=== PATIENT | male | born 1955 | race Asian ===

== ENCOUNTER 2018-10-24 14:23 | Emergency (ER) | payer MEDICAID ==
[~2018-10-24] VITALS: Ht 182.9 cm; Wt 99.8 kg
[~2018-10-24 14:23] MED LIST: SANTYL OINTMENT TP
[2018-10-24 14:45] VITALS: BP 164/93
--- NOTE | 2018-10-24 14:45 | NUR ---
ED Nurse Note: Pt from [facility] brought in by ambulance due to right leg weeping edema x 2 days. Noted right lower leg redness, swelling and open skin lesions but no drainage at this time. Also noted wounds on right knee, right foot and left thigh. Patient is AAO x4, non ambulatory follows commands, with oxygen and NC at 2Lpm d/t condition SOB at the facility.
--- NOTE | 2018-10-24 14:48 | Emergency Room Report ---
History of Present Illness General Chief Complaint: Skin Rash/Abscess Source: Patient, Medical Record, EMS Present Illness HPI This is a 63-year-old male with a poor historian who was sent by a postacute care center for bleeding in the right leg. He appears that he has a long- standing history of fluid overload and peripheral edema. He denies any pain. Denies any fever. The bleeding was controlled with direct pressure and rapid wound. No other associated symptoms. Denies any trauma or fall. Allergies: Coded Allergies: LEVOFLOXACIN (Verified Allergy, Unknown, 10/24/18) Patient History Past Medical History: old chart reviewed Pertinent Family History: unable to obtain Nursing Documentation-[facility] Past Medical History: No History, Except For Hx Hypertension: Yes Review of Systems All Other Systems: negative except mentioned in HPI Physical Exam Vital Signs Date Time Temp Pulse Resp B/P (MAP) Pulse Ox O2 Delivery O2 Flow Rate FiO2 10/24/18 14:18 97.5 63 18 179/72 97 Nasal Cannula 2.0 General Appearance: well appearing, no apparent distress Head: normocephalic, atraumatic Neck: full range of motion, supple Respiratory: no respiratory distress, speaking full sentences Genitourinary: other - erythema on b/l groin, no discharge, no leukoplakia, non -crusted. no fluctuance Musculoskeletal: other - 2+ pitting edema BLE. abrasions on the right leg. no laceration. 2 cm open wound on medial aspect of right great toe. no fluctuance, no surrounding erythema, non-tender Neurologic: alert Medical Decision Making Diagnostic Impression: Primary Impression: Rash and other nonspecific skin eruption ER Course There is a potentially very serious patient returns very concerned about acute cellulitis, necrotizing fasciitis, arterial bleeding, DVT, arterial thrombus. The bleeding has been well controlled. It appears to be chronic in nature. The swelling appears to be chronic in nature. He has no pain. She has no signs of infection. Attempted several times to get a hold of his primary and referring physician, Dr. Emanuel. However, unable to get ahold of him. The patient is stable at this time. He has no other complaints. He is hemodynamically stable. I do not feel any further workup is indicated at this time. The wound was rewrapped. And he is to follow-up with his primary care physician as an outpatient and to return if there is any new symptoms. Last Vital Signs Date Time Temp Pulse Resp B/P (MAP) Pulse Ox O2 Delivery O2 Flow Rate FiO2 10/24/18 14:18 97.5 63 18 179/72 97 Nasal Cannula 2.0 Status: improved Disposition: HOME, SELF-CARE Condition: Stable Patient Instructions: Abrasion, Hgot-jr-[id number] AMADA AGUERO Oct 24, 2018 14:48
--- NOTE | 2018-10-24 14:55 | NUR ---
ED Nurse Note: Dr Vieyra at the bed side checking right leg and wounds.
[2018-10-24 17:59] VITALS: BP 171/90
--- NOTE | 2018-10-24 19:06 | NUR ---
ED Nurse Note: Pt refused tylenol medication. Dr Vieyra notified.
--- NOTE | 2018-10-24 19:08 | NUR ---
HAND-OFF: Report given to Joe PATINO RN.
[2018-10-24 19:09] LABS: ANION GAP 10 mmol/L (5-15); BASOPHILS % (AUTO) 1.8 % (0.0-2.0); BLOOD UREA NITROGEN 57 mg/dL (7-18); CALCIUM 8.9 MG/DL (8.5-10.1); CARBON DIOXIDE 23 MMOL/L (21-32); CHLORIDE 107 MMOL/L (98-107); CREATININE 3.6 MG/DL (0.55-1.30); EOSINOPHILS % (AUTO) 5.5 % (0.0-3.0); HEMATOCRIT 36.8 % (42.0-52.0); HEMOGLOBIN 11.5 G/DL (14.2-18.0); LYMPHOCYTES % (AUTO) 30.9 % (20.0-45.0); MEAN CORPUSCULAR VOLUME 96 FL (80-99); MONOCYTES % (AUTO) 11.5 % (1.0-10.0); NEUTROPHILS % (AUTO) 50.4 % (45.0-75.0); PLATELET COUNT 210 K/UL (150-450); POTASSIUM 4.8 MMOL/L (3.5-5.1); RED BLOOD COUNT 3.85 M/UL (4.70-6.10); RED CELL DISTRIBUTION WIDTH 14.9 % (11.6-14.8); SODIUM 140 MMOL/L (136-145); WHITE BLOOD COUNT 5.3 K/UL (4.8-10.8)
[2018-10-24 19:20] LABS: ALANINE AMINOTRANSFERASE 19 U/L (12-78); ALBUMIN 2.6 G/DL (3.4-5.0); ALBUMIN/GLOBULIN RATIO 0.5 (1.0-2.7); ALKALINE PHOSPHATASE 230 U/L (46-116); ASPARTATE AMINO TRANSFERASE 29 U/L (15-37); BILIRUBIN,TOTAL 0.5 MG/DL (0.2-1.0)
[2018-10-24] MEDS ORDERED: MILK OF MA400 MG/51 ORAL (20:29)
[2018-10-24] MEDS ORDERED: DULCOLAX10 MG RC (20:29)
[2018-10-24] MEDS ORDERED: METOLAZONE5 MG PO (20:29)
[2018-10-24] MEDS ORDERED: KLOR-CON M2020 MEQ ORAL (20:29)
[2018-10-24] MEDS ORDERED: FLEET ENEMA133 ML RECTAL (20:29)
[2018-10-24] MEDS ORDERED: ACETAMINOPHEN325 M1 ORAL (20:29)
[2018-10-24] MEDS ORDERED: ASCORBIC ACID500 MG ORAL (20:29)
[2018-10-24] MEDS ORDERED: FUROSEMIDE40 MG ORAL (20:29)
[2018-10-24] MEDS ORDERED: ASPIR 8181 MG ORAL (20:29)
[2018-10-24] MEDS ORDERED: CARVEDILOL6.25 MG ORAL (20:29)
[2018-10-24] MEDS ORDERED: ATORVASTATIN CA20 MG ORAL (20:29)
[2018-10-24] MEDS ORDERED: ZOFRAN4 M3 ORAL (20:29)
[2018-10-24] MEDS ORDERED: HYDRALAZINE HC100 MG ORAL (20:29)
[2018-10-24] MEDS ORDERED: ATIVAN0.5 MG ORAL (20:29)
[2018-10-24] MEDS ORDERED: CATAPRES0.1 MG ORAL (20:29)
[2018-10-24] MEDS ORDERED: DUONEB 0.5-3(2.53 ML HHN (20:29)
[2018-10-24] MEDS ORDERED: TYLENOL EXTRA500 MG ORAL (20:29)
[2018-10-24] MEDS ORDERED: ISOSORBIDE MONO30 M1 PO (20:29)
[2018-10-24] MEDS ORDERED: MULTIVITAMINS1 EAC8 ORAL (20:29)
[2018-10-24] MEDS ORDERED: ZINC SULFATE220 M1 ORAL (20:29)
[2018-10-24] MEDS ORDERED: MEDIHONEY15 ML TP (20:37)
--- NOTE | 2018-10-24 20:46 | History and Physical Report ---
DATE OF ADMISSION: 10/24/2018 HISTORY OF PRESENT ILLNESS: This is a 63-year-old male came to the emergency room for having bilateral leg edema and foul smell ulcer is progressively worse. The patient denies any fever or chills. PAST MEDICAL HISTORY: Significant for CHF, hypertension, leg edema. MEDICATIONS: See the list. ALLERGIES: NKA. FAMILY HISTORY: Noncontributory. SOCIAL HISTORY: The patient lives at [place], mostly wheelchair bound. REVIEW OF SYSTEMS: Generalized weakness, tired, and fatigue. PHYSICAL EXAMINATION: GENERAL: This is elderly male, who is currently in the bed. VITAL SIGNS: Blood pressure is 130/70, pulse 60, and respirations 18. No fever. HEENT: NAD. CHEST: Bilaterally clear. CARDIOVASCULAR: Regular rhythm. ABDOMEN: Bilateral leg ulcer. 1+ edema. GENITOURINARY: Deferred. LABORATORY DATA: White counts are 10,000. ASSESSMENT: 1. Bilateral leg cellulitis. 2. Leg ulcer. 3. Congestive heart failure. 4. Obesity. PLAN: Diet, 2 gram sodium diet. Start IV antibiotics. Bronchodilator treatments. Wound care. Sliding scale. Rikki Emanuel M.D. DR: Alvaro JOB#: [id number] CC:
--- NOTE | 2018-10-24 21:25 | NUR ---
Spoke with [facility]- aware of patient returning home by ambulance, address verifed.
--- NOTE | 2018-10-24 21:30 | NUR ---
AMA: SEE AMA FORM. PATIENT SIGNED AMA FORM. REFUSED ALL CARE. ERMD AWARE. ADMITTING TYE METLON MD NOTIFIED AND MADE AWARE
[2018-10-24 22:15] VITALS: BP 171/90
--- NOTE | 2018-10-24 22:15 | NUR ---
ED Nurse Note: Pt left with [facility]. Report given to [facility] personnel.
--- NOTE | 2018-10-25 11:55 | Diagnostic Imaging Report ---
Indication: Shortness of breath Technique: One view of the chest Comparison: none Findings: There is a large left and [id number] right pleural effusion. There is bilateral diffuse interstitial edema. The heart is enlarged. Impression: Cardiomegaly Evidence of congestive heart failure, with bilateral interstitial edema, large left and [id number]-mc-[id number] right pleural effusions
--- NOTE | 2018-10-28 21:01 | Cardiology Report ---
APPROVED REPORT EKG Measurement Heart [id number] P64 [id number] Atrial flutter with variable AV block with premature ventricular or aberrantly conducted complexes Indeterminate axis Low voltage QRS Incomplete right bundle branch block Cannot rule out Anterior infarct, age undetermined Abnormal ECG
== END 2018-10-24 22:15 | disposition left against medical advice (07) ==
LOC: EDBD 14:23 → EMR 15:30
DX: I50.9 Heart failure, unspecified (principal); R21 Rash and other nonspecific skin eruption; Z88.1 Allergy status to other antibiotic agents; I10 Essential (primary) hypertension; Z53.21 Procedure and treatment not carried out due to patient leaving prior to being seen by health care provider
CPT/HCPCS: 36415; 71045; 80053; 83880; 84484; 85025; 87081; 93005; 99284